=== PATIENT | female | born 1995 | race Caucasian/White ===

== ENCOUNTER 2017-08-28 03:08 | Emergency (ER) | payer MEDICAID ==
[~2017-08-28] VITALS: Ht 160 cm; Wt 90.9 kg
[~2017-08-28 03:08] MED LIST: CYCL-1 PO; NAPR-1154 PO
[2017-08-28] MEDS ORDERED: famotidine 20mg tablet PO ONE (03:30)
[2017-08-28] MEDS ORDERED: predniSONE 20 mg tablet PO ONE (03:30)
[2017-08-28] MEDS ORDERED: FAMO-128 PO (03:34)
[2017-08-28] MEDS ORDERED: DIPH-423 PO (03:34)
[2017-08-28] MEDS ORDERED: METH4TAB81 PO (03:34)
[2017-08-28 03:46] VITALS: BP 152/111
== END 2017-08-28 03:47 | disposition home or self-care (01) ==
LOC: ER 03:08
DX: L25.9 Unspecified contact dermatitis, unspecified cause (principal); Z88.6 Allergy status to analgesic agent; Z88.8 Allergy status to other drugs, medicaments and biological substances; Z79.899 Other long term (current) drug therapy
CPT/HCPCS: 99283; J7512

== ENCOUNTER 2018-11-01 13:49 | Emergency (ER) | payer MEDICAID, OTHER ==
[~2018-11-01] VITALS: Ht 160 cm; Wt 97.7 kg
[~2018-11-01 13:49] MED LIST changes: +DIPH-423 PO; +FAMO-128 PO; +METH4TAB81 PO
[2018-11-01 14:10] VITALS: BP 137/72
== END 2018-11-01 15:44 | disposition home or self-care (01) ==
LOC: ER 13:49
DX: R07.89 Other chest pain (principal); I10 Essential (primary) hypertension; F32.9 Major depressive disorder, single episode, unspecified; Z88.6 Allergy status to analgesic agent; Z88.8 Allergy status to other drugs, medicaments and biological substances; Z79.899 Other long term (current) drug therapy
CPT/HCPCS: 93005; 99283

== ENCOUNTER 2019-12-12 12:47 | Emergency (ER) | payer MEDICAID, OTHER ==
[~2019-12-12] VITALS: Ht 162.6 cm; Wt 106.1 kg
[2019-12-12 12:57] VITALS: BP 128/104
[2019-12-12] MEDS ORDERED: ketorolac tromethamine 15mg/ml inj. IM ONE (13:15)
[2019-12-12] MEDS ORDERED: IBUP-1984 PO (13:30)
[2019-12-12] MEDS ORDERED: ibuprofen tablet 400 MG TABLET PO ONE (13:45)
--- NOTE | 2019-12-12 13:58 | NUR ---
Patient left after sling applied, without medications and before discharge paperwork given.
== END 2019-12-12 14:00 | disposition home or self-care (01) ==
LOC: ER 12:48
DX: M25.511 Pain in right shoulder (principal); Z88.6 Allergy status to analgesic agent; Z88.8 Allergy status to other drugs, medicaments and biological substances; Z79.899 Other long term (current) drug therapy
CPT/HCPCS: 73030; 99283